=== PATIENT | male | born 1950 | race Caucasian/White ===

== ENCOUNTER → 2018-10-06 | Outpatient (CLI) | payer MEDICARE, OTHER ==
--- NOTE | 2018-10-06 09:33 | RAD ---
Ultrasound abdomen complete 10/06/2018 Clinical indication: Generalized abdominal pain. COMPARISON: None. FINDINGS: Structures including the pancreas, abdominal aorta and IVC are not well visualized due to overlying bowel gas. Liver is homogeneous in echotexture. Gallbladder is normal in size and configuration without wall thickening, cholelithiasis or pericholecystic free fluid. No intra or extrahepatic biliary ductal dilatation. Common bile duct measures 3 mm. Right kidney measures 11.4 cm is length without hydronephrosis or abnormal perinephric fluid collection. Spleen is normal in size measuring 9.4 cm in length. Left kidney measures 10.5 cm in length without hydronephrosis or abnormal perinephric fluid collection. IMPRESSION: Essentially unremarkable abdominal sonogram. Electronically signed by: Florentin Berkowitz MD (10/06/2018 9:30 AM) [id number]
== END | disposition home or self-care (01) ==
LOC: US 07:42
PROVIDERS: ATTEND Family Medicine
DX: R10.84 Generalized abdominal pain (principal)
CPT/HCPCS: 76700